=== PATIENT | female | born 1995 | race Caucasian/White ===

== ENCOUNTER 2016-11-27 11:02 | Emergency (ER) | payer OTHER ==
[2016-11-27 12:10] VITALS: BP 111/64
--- NOTE | 2016-11-27 13:29 | UC ---
Head Injury HPI - HPI Summary HPI Summary: Patient was getting high on thursady, got dizzy fell over and hit her head, she thinks she was dehydrated, denies chance of . denies ETOH use. not sure if she had LOC, she remembers laying on the ground thinking she was in her bed. - History Of Current Complaint Chief Complaint: UCHeadache Stated Complaint: HEAD ACHE Time Seen by Provider: 11/27/16 13:12 Hx Obtained From: Patient Hx Last Menstrual Period: 11/22/16 ?: No Onset/Duration: Sudden Onset, Lasting Days Severity Currently: Mild Severity Initially: Moderate Pain Intensity: 3 Pain Scale Used: 0-10 Numeric Aggravating Factor(s): Nothing Alleviating Factor(s): Nothing Associated Signs And Symptoms: Positive: Nausea - Allergies/Home Medications Allergies/Adverse Reactions: Allergies Allergy/AdvReac Type Severity Reaction Status Date / Time No Known Allergies Allergy Verified 11/27/16 11:56 Home Medications: Home Medications NK [No Home Medications Reported] 11/27/16 [History Confirmed 11/27/16] PMH/Surg Hx/FS Hx/Imm Hx Previously Healthy: Yes - Surgical History Surgical History: None - Family History Known Family History: Negative: Cardiac Disease, Hypertension - Social History Alcohol Use: None Substance Use Type: Marijuana Substance Use Comment - Amount & Last Used: last used on Monday Smoking Status (MU): Never Smoked Tobacco Review of Systems Constitutional: Negative Skin: Negative Eyes: Negative ENT: Negative Respiratory: Negative Cardiovascular: Negative Gastrointestinal: Negative Genitourinary: Negative Motor: Negative Neurovascular: Negative Neurological: Headache Psychological: Negative All Other Systems Reviewed And Are Negative: Yes Physical Exam Triage Information Reviewed: Yes Appearance: Well-Appearing, Well-Nourished, Pain Distress Vital Signs: Initial Vital Signs Temp 98.1 F 11/27/16 11:57 Pulse 68 11/27/16 11:57 Resp 16 11/27/16 11:57 BP 111/64 11/27/16 11:57 Pulse Ox 100 11/27/16 11:57 Vital Signs Reviewed: Yes Eye Exam: Normal Eyes: Positive: Conjunctiva Clear, Other: - no brusies, lacerations or deformities on scalp and face ENT Exam: Normal ENT: Positive: Normal ENT inspection, Hearing grossly normal, Pharynx normal, TMs normal Dental Exam: Normal Neck exam: Normal Neck: Positive: Supple, Nontender, No Lymphadenopathy Respiratory Exam: Normal Respiratory: Positive: Chest non-tender, Lungs clear, Normal breath sounds Cardiovascular Exam: Normal Cardiovascular: Positive: RRR, No Murmur, Pulses Normal Abdominal Exam: Normal Abdomen Description: Positive: Nontender, No Organomegaly, Soft Bowel Sounds: Positive: Present Musculoskeletal Exam: Normal Musculoskeletal: Positive: Strength Intact, ROM Intact, No Edema Neurological: Positive: Alert, Muscle Tone Normal, Other: - PERRLA, EOMI, neg RHomberg, able to hear and smell, visual exam normal. Psychological Exam: Normal Skin Exam: Normal Head Injury Course/Dx - Course Course Of Treatment: hx obtained exam perfrormed, patient reports improvement from yesterday, only residual symptom is headache, educated on treatment of concussion and importance of resting to allow for healing. patient is using tylneol with good relief of headache. recommend follow up with any increase in symptoms. - Differential Dx/Diagnosis Differential Diagnosis/HQI/PQRI: Concussion Without LOC Provider Diagnoses: concussion Discharge - Discharge Plan Condition: Stable Disposition: HOME Patient Education Materials: Concussion (ED) Additional Instructions: lots of rest, continue with tylenol for pain. follow up with any increase in symptoms.
== END 2016-11-27 13:44 | disposition home or self-care (01) ==
LOC: UCCORT 11:02
DX: S06.0X0A Concussion without loss of consciousness, initial encounter (principal); F12.90 Cannabis use, unspecified, uncomplicated; W19.XXXA Unspecified fall, initial encounter; Y92.9 Unspecified place or not applicable
CPT/HCPCS: 99201; G0463